=== PATIENT | female | born 1990 | race Caucasian/White ===

== ENCOUNTER 2016-08-14 15:39 | Emergency (ER) | payer OTHER ==
[~2016-08-14 15:39] MED LIST: ALESSE-281 TAB PO; AMOXICILLIN PO; ANTIDEPRESSANT; ANTIHISTAMINE25 M1 PO; BACTRIM DS TABL1 TA1 PO; BACTRIM DS TABL1 TAB PO; BENZONATATE PO; DOXYCYCLINE150 MG PO; EFFEXOR; EFFEXOR XR75 MG PO; ERYTHROMYCIN O3.5 G1 OD; INDERAL LA; LORATADINE PO; LORTAB 5/500 TA1 TA2 PO; MACROBID100 M1 PO; NO MEDICATIONS; PHENERGAN DM1 ML PO; PRENATAL1 TA1 PO; PYRIDIUM PO; PYRIDIUM100 MG PO; STERAPRED5 MG/DOSE1 PO; SUDAFED30 M1 PO; VEETIDS 500500 M1 PO; VITAMIN D31000 UNIT PO; VOLTAREN75 MG PO
== END 2016-08-14 16:23 | disposition home or self-care (01) ==
LOC: SED 15:39
DX: J02.0 Streptococcal pharyngitis (principal); F32.9 Major depressive disorder, single episode, unspecified; F41.9 Anxiety disorder, unspecified
CPT/HCPCS: 87880; 99283

== ENCOUNTER 2016-10-02 16:38 | Emergency (ER) | payer OTHER ==
[2016-10-02] MEDS ORDERED: ATARAX (16:45)
== END 2016-10-02 17:42 | disposition home or self-care (01) ==
LOC: SED 16:38
DX: J02.0 Streptococcal pharyngitis (principal); F17.210 Nicotine dependence, cigarettes, uncomplicated
CPT/HCPCS: 87880; 96372; 99283; J0561